=== PATIENT | male | born 1980 | race Caucasian/White ===

== ENCOUNTER 2016-11-27 23:37 | Emergency (ER) | payer SELFPAY ==
[~2016-11-27] VITALS: Ht 180.3 cm; Wt 90.7 kg
--- NOTE | 2016-11-28 00:30 | NUR ---
TO BED 8 A 36 YO MALE BIBSELF W C/O "DEMETRI SWOLLEN FEET FOR ONE MONTH." VSS. NAD NOTED. BREATHING EVEN AND UNLABORED. NONDIAPHORETIC. SAFETY MEASURES IN PLACE. ELEVATED LOWER EXTREMITIES.
[2016-11-28 01:01] LABS: BASOPHILS # (AUTO) 0.1 /CMM (0.0-0.2); BASOPHILS % (AUTO) 0.8 % (0.0-2.0); EOSINOPHILS # (AUTO) 0.2 /CMM (0.0-0.7); HEMATOCRIT 42 % (39-51); HEMOGLOBIN 14.4 g/dL (13.5-17.5); LYMPHOCYTES # (AUTO) 2.1 /CMM (0.8-4.8); LYMPHOCYTES % (AUTO) 28.7 % (20.0-44.0); MEAN CORPUSCULAR HEMOGLOBIN 31 PG (26.0-33.0); MEAN CORPUSCULAR HGB CONC 34 g/dl (31.0-36.0); MEAN CORPUSCULAR VOLUME 89 fL (80-96); MONOCYTES # (AUTO) 0.6 /CMM (0.1-1.30); MONOCYTES % (AUTO) 7.9 % (2.0-12.0); NEUTROPHILS # (AUTO) 4.4 /CMM (1.8-8.9); NEUTROPHILS % (AUTO) 59.6 % (43.0-81.0); PLATELET COUNT (AUTO) 321 /CMM (150-450); RDW COEFFICIENT OF VARIATION 12.8 (11.5-15.0); RED BLOOD CELL COUNT(AUTO) 4.72 MIL/uL (4.5-6.0); WHITE BLOOD COUNT (AUTO) 7.4 K/uL (4.3-11.0)
[2016-11-28 01:05] LABS: CALCIUM, SERUM 7.5 mg/dL (8.5-10.1); POTASSIUM 4.4 mmol/L (3.5-5.1)
[2016-11-28 01:13] LABS: BILIRUBIN,TOTAL 0.3 mg/dL (0.2-1.0); TOTAL PROTEIN, SERUM 4.4 g/dL (6.4-8.2)
[2016-11-28 01:19] LABS: ALBUMIN 1.4 g/dL (3.4-5.0)
[2016-11-28 01:23] LABS: APPEARANCE,URINE CLEAR (CLEAR); BILIRUBIN,URINE NEGATIVE (NEGATIVE); BLOOD, URINE 2+ Ery/uL (NEGATIVE); COLOR,URINE YELLOW (YELLOW); KETONES,URINE NEGATIVE (NEGATIVE); LEUKOCYTE ESTERASE ,URINE NEGATIVE (NEGATIVE); NITRITE, URINE NEGATIVE (NEGATIVE); PROTEIN,URINE 3+ mg/dl (NEGATIVE); UGLUCOSE NEGATIVE (NEGATIVE)
[2016-11-28 01:30] LABS: BACTERIA,URINE None seen /HPF (None Seen); MUCUS,URINE Few /LPF (None Seen); SQUAMOUS EPITHELIAL CELL,UR Few /HPF (None Seen); URINE AMORPHOUS URATE Few /HPF (None Seen); WBC,URINE 0-2 /HPF (0-3)
[2016-11-28 01:38] VITALS: BP 137/84
--- NOTE | 2016-11-28 01:38 | NUR ---
Patient discharged to home in stable condition. Written and verbal after care instructions given. Patient verbalizes understanding of instruction. Patient is ambulatory with steady gait, accompanied by family. no further complaints.
== END 2016-11-28 01:38 | disposition home or self-care (01) ==
LOC: ER 23:40
DX: R60.0 Localized edema (principal); E88.09 Other disorders of plasma-protein metabolism, not elsewhere classified; E77.8 Other disorders of glycoprotein metabolism; R80.9 Proteinuria, unspecified; N04.9 Nephrotic syndrome with unspecified morphologic changes
CPT/HCPCS: 36415; 80048; 80076; 81001; 85025; 99284; A4606; 81000-TC; Z7610

== ENCOUNTER 2021-11-03 12:22 | Emergency (ER) | payer OTHER ==
[~2021-11-03] VITALS: Ht 180.3 cm; Wt 77.1 kg
[2021-11-03 12:39] VITALS: BP 134/94
[2021-11-03] MEDS ORDERED: HYDROCODONE/APAP 5/325MG TABLET PO ONE ×2 (14:00→16:00)
[2021-11-03] MEDS ORDERED: HYDROCODONE/APAP 5/325MG TABLET ONE ×3 (14:01→15:45)
--- NOTE | 2021-11-03 14:21 | NUR ---
Patient discharged to home in stable condition. Written and verbal after care instructions given. Patient verbalizes understanding of instruction.
[2021-11-03] MEDS ORDERED: HYDR-4303 PO (15:38)
[2021-11-03] MEDS ORDERED: ACET325T53 PO (15:38)
== END 2021-11-03 15:57 | disposition home or self-care (01) ==
LOC: ER 12:27
DX: M25.532 Pain in left wrist (principal)
CPT/HCPCS: 73110